=== PATIENT | male | born 1945 | race Caucasian/White ===

== ENCOUNTER 2018-05-21 09:42 | Emergency (ER) | payer OTHER, MEDICARE ==
--- NOTE | 2018-05-21 10:27 | EDPHY ---
General - History Smoking Status: Current every day smoker Time Seen by Provider: 05/21/18 10:15 Narrative: CHIEF COMPLAINT: Fell, thumb laceration HISTORY OF PRESENT ILLNESS: Patient presents by private vehicle with complaints of fall left thumb laceration. This happened last night 11:00 p.m.. He says that he tripped and fell, landing on his left thumb. He sustained a laceration to the thumb but had minimal pain with. Bleeding was moderate but stopped with Pressure. He at 1st thought that the wound was not requiring repair, thus he waited till this morning. When he woke this morning he is more concerned about the minimal pain- free no head strike or loss of consciousness. No numbness or tingling. No difficulty been or straightening the finger. Tetanus up-to-date less than 5 years ago. No other associated complaints or modifying factors. TIME OF INJURY: 11:00 p.m. Last night TETANUS STATUS: Less than 5 years MEDICAL/SURGICAL/SOCIAL HISTORY: Uncomplicated with orthopedic injuries and orthopedic surgeries. Nonsmoker. Nondiabetic. REVIEW OF SYSTEMS: Ten systems reviewed and are negative unless otherwise noted in the HPI EXAMINATION: Vitals: Triage VS reviewed General Appearance: Alert, no distress. Well appearing Head: normocephalic, atraumatic no depression deformity. No signs of trauma Cardiovascular: Symmetric radial pulses 2+. Neurological: A&O, light sensory symmetric, gold stamper and interossei strength symmetric Skin: Warm and dry, no rash Extremities: Nontender, no pedal edema DIFFERENTIAL DIAGNOSES: Including but not limited to laceration, laceration complication, laceration foreign body, laceration with deep tissue injury MDM: 10:20 a.m. Fall last night with injury to the left thumb with 2 areas of laceration on the palmar side of the thumb. Neuro intact with no flexor deficits. I have ordered x-ray and administered a digital block. 10:45 a.m. The x-ray as read by me, without radiologist, reveals no acute fracture. Wound will be copiously irrigated and closed. 11:45 a.m. Laceration has been repaired. This was a very difficult laceration repair. There is no evidence of tendon injury with full flexion extension of the thumb and full opposition and abduction of the thumb. He will be placed in a bulky dressing with recommendation of wound care follow-up versus hand follow-up. We discussed ED precautions. We discussed return here - days for suture removal. I have answered all his questions. Discharged home stable condition. PROCEDURE: Laceration repair Consent: Verbal Location: Left thumb Length of repair: 6 cm Complexity: Complex Layer involvement: Single Anesthesia: Digital block Irrigation: Extensive Debridement: None Procedure description: Following good anesthesia, the wound was copiously irrigated. Wound bed was explored with a sterile glove, and there is no foreign body noted. No injury to the deep tendon structures. Wound borders were approximated well with good hemostasis. Tolerated well without complication. Suture/Staple material: 4-0 Prolene, 15 simple interrupted sutures Wound care: Routine as discussed Suture/Staple removal: 10-14 Days PROCEDURE: Digital Block Indication: Finger laceration Consent: Verbal Location: Left thumb Anesthesia: Lidocaine 1% plain, 0.25% Marcaine plain, 5mL Description: Base of the finger was prepped. The above was infused without difficulty in a ring block fashion. Tolerated well. Good anesthesia. Complications: None SUPERVISION: This patient was independently evaluated without direct involvement of or examination by the attending physician. ED Precautions: Worsening pain. Erythema, edema, cyanosis, pallor, paresthesia or anesthesia. (Ruy Del Angel) Medical Decision Making: I did not see this patient while he was in the emergency department. However his care was discussed with the PA while the patient was in the department. I agree with treatment plan and management (Paul Butts) - Objective Vital Signs: Initial Vital Signs Temperature (C) 36.7 C 05/21/18 09:52 Heart Rate 67 05/21/18 09:52 Respiratory Rate 18 05/21/18 09:52 Blood Pressure 131/87 H 05/21/18 09:52 O2 Sat (%) 94 05/21/18 09:52 O2 Delivery Mode Room Air Allergies/Adverse Reactions: No Known Allergies Allergy (Unverified 05/21/18 09:51) Home Medications: Medication Instructions Recorded Allopurinol 05/21/18 Cephalexin [Keflex (*)] 500 mg PO QID #40 cap 05/21/18 Lisinopril 05/21/18 Departure - Departure Disposition: Home, Routine, Self-Care Clinical Impression: Laceration of thumb, left, complicated Condition: Good Instructions: Care For Your Stitches (ED), Laceration (ED) Additional Instructions: 1. Thin layer of bacitracin once daily 2. Keep the wound covered while showering for the next 2 days 3. Daily wound care as discussed with antibacterial wash and thin layer bacitracin. 4. Return here for suture removal in 10 days s 5. Return here for signs of infection as discussed including warmth, redness, fever, drainage from the site 6. return here for increasing pain surrounding the laceration 7. Do not submerge the wound in any water, hot tub, swimming pool until sutures removed 8. Follow-up with hand surgeon or wound care for re-evaluation of the wound early next week Referrals: Thomas Pantoja MD [Primary Care Provider] - As per Instructions Onesimo Campbell MD [Medical Doctor] - As per Instructions [facility] [Clinic] - As per Instructions Prescriptions: Cephalexin [Keflex (*)] 500 mg PO QID #40 cap
[2018-05-21 12:15] VITALS: BP 126/93
== END 2018-05-21 12:16 | disposition home or self-care (01) ==
PROC: 0HQGXZZ Repair Left Hand Skin, External Approach (ICD-10-PCS; principal; 2018-05-21)
DX: S61.012A Laceration without foreign body of left thumb without damage to nail, initial encounter (principal); W01.0XXA Fall on same level from slipping, tripping and stumbling without subsequent striking against object, initial encounter; Y92.9 Unspecified place or not applicable; Y93.9 Activity, unspecified; Y99.9 Unspecified external cause status